=== PATIENT | female | born 1960 | race Caucasian/White ===

== ENCOUNTER → 2016-09-06 | Outpatient (CLI) | payer OTHER ==
--- NOTE | 2016-09-06 15:52 | DX ---
PA and Lateral Chest Clinical Indications: Chronic urticaria. Findings: The lungs are clear, and no masses are found. No hilar adenopathy. The heart and pulmonar y vessels are normal. There are no pleural effusions and no pneumothorax. The bones are unremarkabl e for this age. No change from October 17, 2010. Impression: Normal.
== END ==
LOC: FIMAGING 14:59
PROVIDERS: ATTEND Specialist
DX: L50.8 Other urticaria (principal)

== ENCOUNTER 2017-02-06 08:03 | Emergency (ER) | payer OTHER ==
[2017-02-06 08:13] VITALS: TEMP 97.9
[2017-02-06] MEDS ORDERED: ONDANSETRON 4 MG/2 ML VIAL IVP ONE (08:48)
--- NOTE | 2017-02-06 08:48 | EDPHY ---
H & P Time Seen by Provider: 02/06/17 08:19 HPI/ROS: CHIEF COMPLAINT: Dizziness HISTORY OF PRESENT ILLNESS: The patient is a 56-year-old female who presents emergency department with severe dizziness. The patient awoke at 2:00 a.m. feeling as though the "floor was moving." She had difficulty ambulating to the bathroom. She went back to bed continued to have dizziness. At 5:00 a.m. she developed nausea and vomiting. Her dizziness is worse with movement. She has a mild headache that is diffuse. No neck pain. No visual change. No incoordination. No difficulty with speech. No other focal neurologic deficits. No recent trauma. No fall. REVIEW OF SYSTEMS: My complete review of systems is negative except as mentioned in the HPI. Past Medical/Surgical History: Migraines, psoriasis Smoking Status: Never smoked Physical Exam: Vitals noted GENERAL: Well-appearing, in no acute distress, alert. HEENT: Eyes normal to inspection, normal pharynx, no signs of dehydration. No nystagmus. Normal TMs bilateral NECK: No thyromegaly, no lymphadenopathy, supple. RESPIRATORY: Clear to auscultation bilaterally, no rales, rhonchi or wheezing. CVS: Regular rate and rhythm, no rubs, murmurs, or gallops. ABDOMEN: Soft, nontender, nondistended, no organomegaly. BACK: Normal to inspection, no CVA tenderness. SKIN: Normal color, no rash, warm, dry. No pallor. EXTREMITIES: No pedal edema, no calf tenderness, no Homans sign or cords, no joint swelling. NEURO/PSYCH: Higher functions: Alert and Oriented x3. Normal speech and cognition. Normal mood and affect. Cranial nerves: Normal as tested. Cerebellar: Normal as tested. Good finger to nose, good [id number], normal gait. Peripheral exam: [Normal motor exam. Normal sensation. Normal reflexes. Constitutional: Initial Vital Signs Temperature (C) 36.6 C 02/06/17 08:10 Heart Rate 64 02/06/17 08:10 Respiratory Rate 20 02/06/17 08:10 Blood Pressure 172/98 H 02/06/17 08:10 O2 Sat (%) 100 02/06/17 08:10 O2 Delivery Mode Room Air Allergies/Adverse Reactions: cephalexin monohydrate [From Keflex] Allergy (Severe, Verified 02/06/17 08:08) Hives Home Medications: Medication Instructions Recorded Frova 06/26/13 Lunesta 06/26/13 Zomig 06/26/13 Meclizine HCl [Meclizine HCl 25 mg 25 mg PO TID #11 tab 02/06/17 (RX,OTC)] Ondansetron Odt [Zofran Odt 4 mg 4 mg PO Q4PRN PRN #7 tab 02/06/17 (*)] Otezla 02/06/17 Medical Decision Making - Diagnostics Imaging Results: Imaging Impressions Head CT 02/06/17 08:49 Impression: There is no acute intracranial abnormality identified on this unenhanced CT evaluation. If there is further clinical concern regarding the patient's symptoms, MR imaging is suggested, if not otherwise contraindicated. Findings were discussed with MARYANA GRIDER MD at 9:17 am, on 02/06/2017. Brain MRI 02/06/17 09:24 Impression: 1. Minimal enhancement adjacent to or of the left 8th cranial nerve at the medial posterior aspect of the internal auditory canal. No definite mass. This could be inflammatory and consider follow up. 2. A couple small white matter lesions in the frontal lobes which are nonspecific and could be gliosis from migraine or trauma or small vessel ischemic disease. No evidence for acute infarct. Results called and discussed with Maryana Grider at 1120 hours 06 February 2017. ED Course/Re-evaluation: In the emergency department I discussed possible etiologies with the patient. The Emma maneuver was performed. Patient was given Zofran 4 mg IV and meclizine 25 mg IV. Laboratory studies, EKG, head CT were ordered. Head CT: No acute disease noted. Please refer the dictated report by Dr. Amador. I discussed the results with the patient. MRI was ordered. I reviewed the laboratory studies. They are unremarkable. EKG shows normal sinus rhythm, normal rate, normal axis, normal intervals. There are no ST or T-wave abnormalities. EKG is normal as interpreted by me. MRI of brain: Please refer the dictated report by Dr. Isra Amador. The patient has no signs of acute CVA. No hemorrhage. The patient has mild inflammation and cranial nerve 8. Please refer the report. I rechecked the patient while here. She had no focal deficits on repeat exam. Her nausea and dizziness had resolved after receiving meclizine. I gave the patient warnings prior to leaving. She will return with worsening symptoms. She is given follow-up with Neurology. Differential Diagnosis: My differential includes but is not limited to ischemic CVA, hemorrhagic CVA, dissection, aneurysm, peripheral vertigo, central vertigo, electrolyte abnormality, sugar abnormality - Data Points Laboratory Results: Laboratory Results 02/06/17 08:25 02/06/17 08:25 02/06/17 02/06/17 02/06/17 08:25 08:25 08:25 WBC 7.71 10^3/uL 10^3/uL (3.80-9.50) RBC 4.70 10^6/uL 10^6/uL (4.18-5.33) Hgb 13.9 g/dL g/dL (12.6-16.3) Hct 41.6 % % (38.0-47.0) MCV 88.5 fL fL (81.5-99.8) MCH 29.6 pg pg (27.9-34.1) MCHC 33.4 g/dL g/dL (32.4-36.7) RDW 14.0 % % (11.5-15.2) Plt Count 303 10^3/uL 10^3/uL (150-400) MPV 10.0 fL fL (8.7-11.7) Neut % (Auto) 76.2 % H % (39.3-74.2) Lymph % (Auto) 17.1 % % (15.0-45.0) [place] % (Auto) 3.6 % L % (4.5-13.0) Eos % (Auto) 1.6 % % (0.6-7.6) Baso % (Auto) 1.2 % % (0.3-1.7) Nucleat RBC Rel Count 0.0 % % (0.0-0.2) Absolute Neuts (auto) 5.88 10^3/uL 10^3/uL (1.70-6.50) Absolute Lymphs (auto) 1.32 10^3/uL 10^3/uL (1.00-3.00) Absolute Monos (auto) 0.28 10^3/uL L 10^3/uL (0.30-0.80) Absolute Eos (auto) 0.12 10^3/uL 10^3/uL (0.03-0.40) Absolute Basos (auto) 0.09 10^3/uL 10^3/uL (0.02-0.10) Absolute Nucleated RBC 0.00 10^3/uL 10^3/uL (0-0.01) Immature Gran % 0.3 % % (0.0-1.1) Immature Gran # 0.02 10^3/uL 10^3/uL (0.00-0.10) PT 12.5 SEC SEC (12.0-15.0) INR 0.94 (0.83-1.16) APTT 31.2 SEC SEC (23.0-38.0) Sodium 144 mEq/L mEq/L (134-144) Potassium 4.0 mEq/L mEq/L (3.5-5.2) Chloride 106 mEq/L mEq/L (97-110) Carbon Dioxide 25 mEq/l mEq/l (22-31) Anion Gap 13 mEq/L mEq/L (8-16) BUN 17 mg/dL mg/dL (7-23) Creatinine 0.7 mg/dL mg/dL (0.6-1.0) Estimated GFR > 60 Glucose 101 mg/dL H mg/dL (70-100) Calcium 10.0 mg/dL mg/dL (8.5-10.4) Troponin I < 0.012 ng/mL ng/mL (0-0.034) Medications Given: Discontinued Medications Meclizine HCl (Meclizine Hcl) 25 mg PO EDNOW ONE Stop: 02/06/17 08:50 Last Admin: 02/06/17 09:03 Dose: 25 mg Ondansetron HCl (Zofran) 4 mg IVP EDNOW ONE Stop: 02/06/17 08:49 Last Admin: 02/06/17 09:03 Dose: 4 mg Departure - Departure Disposition: Home, Routine, Self-Care Clinical Impression: Vertigo, Dizziness Condition: Good Instructions: Vertigo (ED), Dizziness (ED) Additional Instructions: Your MRI did not show any signs of stroke. You need close follow-up with the neurologist. Return with increasing dizziness, headache, weakness, numbness or any other concerns. Referrals: Dayanna Coleman MD [Primary Care Provider] - As per Instructions Dwain Pizano MD [Medical Doctor] - 5-7 days, call for appt. Prescriptions: Meclizine HCl [Meclizine HCl 25 mg (RX,OTC)] 25 mg PO TID #11 tab Ondansetron Odt [Zofran Odt 4 mg (*)] 4 mg PO Q4PRN PRN #7 tab PRN Reason: For Nausea & Vomiting
[2017-02-06] MEDS ORDERED: MECLIZINE HCL 25 MG TAB PO ONE (08:49)
[2017-02-06 08:57] LABS: % IMMATURE GRANULYOCYTES 0.3 % (0.0-1.1); ABSOLUTE IMMATURE GRANULOCYTES 0.02 10^3/uL (0.00-0.10); ADD DIFF? NO; ADD MORPH? NO; ADD SCAN? NO; ATYPICAL LYMPHOCYTE FLAG 10 (0-99); FRAGMENT RBC FLAG 0 (0-99); HEMATOCRIT 41.6 % (38.0-47.0); HEMOGLOBIN 13.9 g/dL (12.6-16.3); LEFT SHIFT FLG 20 (0-99); LIPEMIA HEMOLYSIS FLAG 80 (0-99); MEAN CELL HEMOGLOBIN 29.6 pg (27.9-34.1); MEAN CELL HEMOGLOBIN CONCENTR. 33.4 g/dL (32.4-36.7); MEAN CELL VOLUME 88.5 fL (81.5-99.8); PLATELET CLUMPS FLAG 0 (0-99); PLATELET COUNT 303 10^3/uL (150-400)
[2017-02-06 09:00] LABS: ANION GAP 13 mEq/L (8-16); CARBON DIOXIDE 25 mEq/l (22-31); CHLORIDE 106 mEq/L (97-110); CREATININE 0.7 mg/dL (0.6-1.0); GLOMERULAR FILTRATION RATE > 60; GLUCOSE 101 mg/dL (70-100); SODIUM 144 mEq/L (134-144)
[2017-02-06 09:11] LABS: INR 0.94 (0.83-1.16); PROTIME(PATIENT) 12.5 SEC (12.0-15.0); TROPONIN I < 0.012 ng/mL (0-0.034)
[2017-02-06 09:12] LABS: APTT 31.2 SEC (23.0-38.0)
[2017-02-06 09:20] VITALS: RESP 16
--- NOTE | 2017-02-06 09:27 | CPEKG ---
Heart Rate: 55 RR Interval: 1091 P-R Interval: 168 QRSD Interval: 102 QT Interval: 464 QTC Interval: 444 P [place]: 49 QRS [place]: 11 T Wave [place]: 25 EKG Severity - NORMAL ECG - EKG Impression: SINUS RHYTHM Electronically Signed By: Maryana Grider 06-Feb-2017 15:37:30
[2017-02-06] MEDS ORDERED: GADOBUTROL 10 ML VIAL IVP ONE (09:37)
[2017-02-06 12:37] VITALS: PULSE 60; O2SAT 98
[2017-02-06 12:38] VITALS: BP 161/88
== END 2017-02-06 12:37 | disposition home or self-care (01) ==
DX: R42 Dizziness and giddiness (principal)
CPT/HCPCS: 96374; A9585; J2405

== ENCOUNTER → 2017-04-18 | Outpatient (CLI) | payer OTHER | LOC: FIMAGING 08:50 | PROVIDERS: ATTEND Family Medicine | DX: Z12.31 Encounter for screening mammogram for malignant neoplasm of breast (principal) | CPT/HCPCS: G0202 ==

== ENCOUNTER → 2017-04-30 | Outpatient (CLI) | payer OTHER | LOC: FIMAGING 13:55 | PROVIDERS: ATTEND Family Medicine | DX: Z13.820 Encounter for screening for osteoporosis (principal); M81.0 Age-related osteoporosis without current pathological fracture; Z78.0 Asymptomatic menopausal state; Z82.62 Family history of osteoporosis; Z87.81 Personal history of (healed) traumatic fracture; Z79.899 Other long term (current) drug therapy ==